=== PATIENT | female | born 1995 | race African-American/Black ===

== ENCOUNTER 2017-07-23 11:12 | Emergency (ER) | payer SELFPAY ==
[~2017-07-23] VITALS: Ht 154.9 cm; Wt 45.0 kg
[2017-07-23 11:43] VITALS: BP 104/60
== END 2017-07-23 13:10 | disposition left against medical advice (07) ==
LOC: ER 11:12
DX: R07.81 Pleurodynia (principal)
CPT/HCPCS: 81025; 99283

== ENCOUNTER 2021-02-09 12:49 | Emergency (ER) | payer MEDICAID, OTHER ==
[~2021-02-09] VITALS: Ht 165.1 cm; Wt 61.0 kg
[2021-02-09] MEDS ORDERED: SODIUM CHLORIDE 0.9% 1,000 ML IV ONE (16:00)
[2021-02-09] MEDS ORDERED: ACETAMINOPHEN 325MG TABLET PO ONE (16:00)
[2021-02-09 17:17] LABS: HEMATOCRIT. 36.1 % (36.0-48.0); HEMOGLOBIN. 11.7 g/dL (12.0-16.0); MEAN CORPUSCULAR VOLUME 86.7 fL (81.0-99.0); MEAN PLATELET VOLUME 9.4 fl (7.4-10.4); PLATELET 182 x1000/uL (130-400); RED BLOOD CELL COUNT 4.16 mill/uL (4.2-5.4); RED CELL DISTRIBUTION WIDTH 12.8 % (11.6-14.6)
[2021-02-09 17:24] LABS: CHLORIDE 106 mEq/L (98-107)
[2021-02-09 17:41] LABS: HCG SCREEN NEGATIVE
[2021-02-09 19:26] LABS: PLATELET ESTIMATE NORMAL
[2021-02-09 19:45] VITALS: BP 104/59
== END 2021-02-09 19:50 | disposition home or self-care (01) ==
LOC: ER 12:49
DX: R07.89 Other chest pain (principal); F12.10 Cannabis abuse, uncomplicated; J45.909 Unspecified asthma, uncomplicated; Z20.822 Contact with and (suspected) exposure to COVID-19
CPT/HCPCS: 36415; 71045; 80053; 81025; 84703; 85025; 87426; 93005; 96360; 99285; J7030

== ENCOUNTER 2021-10-02 10:16 | Emergency (ER) | payer MEDICAID ==
[~2021-10-02] VITALS: Ht 154.9 cm; Wt 54.0 kg
[2021-10-02 10:18] VITALS: BP 140/90
== END 2021-10-02 17:00 | disposition left against medical advice (07) ==
LOC: ER 10:21
DX: Z53.21 Procedure and treatment not carried out due to patient leaving prior to being seen by health care provider (principal)